=== PATIENT | female | born 1990 | race African-American/Black ===

== ENCOUNTER 2016-11-17 22:07 | Emergency (ER) | payer OTHER ==
[~2016-11-17] VITALS: Ht 160 cm; Wt 87.5 kg
[2016-11-18 00:23] LABS: PLATELET COUNT 219 K/uL (152-353)
[2016-11-18 00:31] LABS: POTASSIUM 3.6 mmol/L (3.6-5.2); SODIUM 135 mmol/L (136-145)
[2016-11-18 02:12] VITALS: BP 121/73; TEMP 98.6
== END 2016-11-18 02:20 | disposition home or self-care (01) ==
LOC: ED 22:07
DX: O20.0 Threatened abortion (principal); Z3A.10 10 weeks gestation of pregnancy
CPT/HCPCS: 36415; 80053; 84702; 85027; 96360; 96361; 96372; 99284; J2270

== ENCOUNTER 2021-10-27 13:43 | Emergency (ER) | payer OTHER ==
[~2021-10-27] VITALS: Ht 160 cm; Wt 99.8 kg
[2021-10-27 13:51] VITALS: TEMP 97.8
[2021-10-27 14:24] LABS: PLATELET COUNT 287 K/uL (152-353)
[2021-10-27 14:37] LABS: POTASSIUM 4.4 mmol/L (3.6-5.2)
[2021-10-27 18:07] VITALS: BP 128/78
== END 2021-10-27 18:07 | disposition home or self-care (01) ==
LOC: ED 13:43
PROVIDERS: Emergency Medicine
DX: R19.09 Other intra-abdominal and pelvic swelling, mass and lump (principal); M54.59 Other low back pain
CPT/HCPCS: 80053; 81000; 81025; 85027; 96360; 96375; 99284; J1885